=== PATIENT | female | born 1970 | race Caucasian/White ===

== ENCOUNTER 2021-10-09 22:43 | Observation (INO) ==
[2021-10-10] MEDS ORDERED: niCARdipine 20 MG/200 ML MLS IVC SCH (01:15)
[2021-10-10] MEDS ORDERED: Naloxone 0.4 MG/ML INJ IVP PRN (01:27)
[2021-10-10] MEDS: niCARdipine 20 MG/200 ML MLS IVC SCH ×5 (02:34→08:00)
[2021-10-10] MEDS ORDERED: Perflutren Lipid Microsphere 1.3 ML in 0.9 % Sodium Chloride 8.7 ML IVP PRN (02:43)
[2021-10-10] MEDS ORDERED: Dextrose 4 GM Chewable Tablets PO PRN ×2 (02:57)
[2021-10-10] MEDS ORDERED: *HR* Dextrose 50 % in Water (Syg) 50 ML SYRINGE IVP PRN (02:57)
[2021-10-10] MEDS ORDERED: D5% in Water 1,000 ML IVC PRN (02:57)
[2021-10-10] MEDS ORDERED: Ondansetron ODT 4 MG TAB.RAPDIS SL ONE (03:14)
[2021-10-10] MEDS ORDERED: *HR* OxyCODONE/APAP 5/325 TABLET PO PRN (03:19)
[2021-10-10] MEDS: Budesonide/Formoterol 160/4.5 1 PUFF INH IH SCH ×2 (03:49→07:55)
[2021-10-10] MEDS: Ipratropium/Albuterol Neb 3 ML IH SCH ×2 (04:26→07:55)
[2021-10-10 05:34] LABS: Basophils # 0.1 K/mcL (0.0-0.2); Basophils % 0.5 %; Eosinophils # 0.1 K/mcL (0.0-0.6); Eosinophils % 0.6 %; Hematocrit 46.3 % (35.3-44.9); Hemoglobin 15.8 g/dL (11.5-15.4); Immature Granulocytes % 0.6 % (0-4); Lymphocytes # 2.3 K/mcL (0.6-4.6); Lymphocytes % 19.5 %; Mean Corpuscular HGB Conc 34.1 g/dL (31.6-35.5); Mean Corpuscular Hemoglobin 30.7 pg (28.0-33.3); Mean Corpuscular Volume 90.1 fL (83.0-100.0); Mean Platelet Volume 8.7 fL (9.4-12.4); Monocytes # 0.6 K/mcL (0.0-1.3); Monocytes % 5.2 %; Neutrophils # 8.7 K/mcL (1.6-8.9); Platelet Count 332 K/mcL (140-400); Red Blood Count 5.14 M/mcL (3.82-4.97); Red Cell Distribution Width 12.7 % (11.5-14.5); Segmented Neutrophils % 73.6 %; White Blood Count 11.8 K/mcL (4.3-11.1)
[2021-10-10] MEDS ORDERED: lisinopriL 20 MG TABLET PO SCH (05:45)
[2021-10-10 05:51] LABS: Estimated Average Glucose 169 mg/dl; Hemoglobin A1C 7.5 %
[2021-10-10 05:53] LABS: Alanine Aminotransferase 27 Units/L (7-52); Albumin 4.5 g/dL (3.5-5.7); Albumin/Globulin Ratio 1.6 (1.1-2.2); Alkaline Phosphatase 96 Units/L (34-104); Aspartate Amino Transferase 23 Units/L (13-39); BUN/Creatinine Ratio 15 (6-26); Bilirubin,Total 0.4 mg/dL (0.3-1.0); Blood Urea Nitrogen 11 mg/dL (6-20); Calcium 10.3 mg/dL (8.6-10.3); Carbon Dioxide 27 mEq/L (23-29); Chloride 97 mEq/L (98-107); Globulin 2.9 g/dL (2.4-3.5); Glucose 189 mg/dL (70-105); Magnesium 1.5 mg/dL (1.6-2.6); Osmolality,Calculated 288 (280-300); Phosphorous 3.4 mg/dL (2.7-4.5); Potassium 3.9 mEq/L (3.5-5.1); Sodium 137 mEq/L (136-145); Total Protein 7.4 g/dL (6.4-8.9); eGFR For African Americans > 60 (> 60); eGFR For Non-African Americans > 60 (> 60)
[2021-10-10] MEDS ORDERED: *HR* Heparin 5,000 UNIT/ML VIAL SQ SCH (06:00)
[2021-10-10] MEDS ORDERED: Insulin LISPRO 300 UNITS/3 ML VIAL SUBQ SCH (07:30)
[2021-10-10] MEDS ORDERED: carvediloL 6.25 MG TABLET PO SCH (08:00)
[2021-10-10] MEDS: Insulin LISPRO 300 UNITS/3 ML VIAL SUBQ SCH ×2 (08:43→12:50)
[2021-10-10] MEDS ORDERED: hydroCHLOROthiazide 25 MG TABLET PO SCH (09:00)
[2021-10-10] MEDS ORDERED: NIFEdipine XL (24 HR) 30 MG TAB.ER.24 PO SCH (09:00)
[2021-10-10] MEDS ORDERED: Azithromycin 250 MG TABLET PO SCH (09:00)
[2021-10-10] MEDS ORDERED: amLODIPine 5 MG TABLET PO SCH (09:00)
[2021-10-10] MEDS ORDERED: NIFEdipine XL (24 HR) 60 MG TAB.ER.24 PO SCH (09:00)
[2021-10-10] MEDS ORDERED: Nicotine 7 MG PATCH.TD24 TD SCH (09:00)
[2021-10-10] MEDS ORDERED: predniSONE 20 MG TABLET PO SCH (09:00)
[2021-10-10 10:20] LABS: Amphetamine Screen,Urine Negative ng/mL (Cutoff=1000); Barbiturate Screen,Urine Negative ng/mL (Cutoff=200); Benzodiazepines Screen,Urine Negative ng/mL (Cutoff=200); Cannabinoid Screen,Urine Positive ng/mL (Cutoff = 50); Cocaine Screen,Urine Negative ng/mL (Cutoff= 300); Opiate Screen,Urine Positive ng/mL (Cutoff=300); Phencyclidine Screen,Urine Negative ng/mL (Cutoff=25)
[2021-10-10] MEDS ORDERED: Budesonide/Formoterol 160/4.5 1 PUFF INH IH PRN (11:14)
[2021-10-10] MEDS ORDERED: Ipratropium/Albuterol Neb 3 ML IH PRN (11:14)
[2021-10-10 12:36] VITALS: BP 134/76; O2SAT 91
[2021-10-10 13:10] VITALS: TEMP 98.2
[2021-10-10 14:16] VITALS: PULSE 68
[2021-10-10] MEDS ORDERED: Insulin DETEMIR 100 UNIT/ML X5UNITS SUBQ SCH (21:00)
== END 2021-10-10 14:15 | disposition home or self-care (01) ==
LOC: ICNU → SUATTDRO 10-10 00:37
PROVIDERS: ADMIT Internal Medicine; ATTEND Internal Medicine